=== PATIENT | male | born 1975 | race Caucasian/White ===

== ENCOUNTER → 2021-12-31 | Emergency (ER) | payer BC ==
[~2021-12-31] VITALS: Ht 170.2 cm; Wt 84.4 kg
== END | disposition left against medical advice (07) ==
LOC: ER 21:06
DX: Z53.21 Procedure and treatment not carried out due to patient leaving prior to being seen by health care provider (principal)

== ENCOUNTER 2025-05-30 06:45 | Day surgery (SDC) | payer OTHER ==
[2025-05-27 10:25] LABS: BASO % 0.5 % (0.1-1.2); EOS # 0.07 (0.04-0.54); EOS % 0.9 % (0.7-7.0); LYMPH # 1.63 (1.18-3.74); LYMPH % 21.9 % (19.3-53.1); MEAN PLATELET VOLUME 9.10 fl (9.4-12.4); MONO # 0.72 (0.24-0.82); MONO % 9.7 % (4.7-12.5); NEUT # 4.95 (1.56-6.13); NEUT % 66.7 % (34.0-71.1); RED CELL DISTRIBUTION WIDTH 12.0 % (11.6-14.4)
[2025-05-27 10:57] VITALS: BP 124/77
[2025-05-27 11:11] LABS: ALT/SGPT 26.0 U/L (12-78); AST/SGOT 14.0 U/L (15-37); BILIRUBIN TOTAL 0.53 mg/dL (0.3-1.2); BUN CREA RATIO 27.0 (7.0-25.0); CREATININE SERUM 0.86 mg/dL (0.70-1.30); GFR 94.13; GLOBULINA 3.3 G/DL (2.4-3.5); GLUCOSE FASTING 104.0 mg/dL (65-100); OSMOLALITY SERUM 285.0 MOSM/KG (275-295)
[2025-05-27 11:18] LABS: URINE APPEARANCE Clear; URINE BILIRRUBIN Negative (NEGATIVE); URINE BLOOD Negative; URINE COLOR Yellow; URINE GLUCOSE Negative (NEGATIVE); URINE KETONE Negative (NEGATIVE); URINE LEUKOCYTE Negative; URINE NITRATE Negative; URINE PROTEIN Negative (NEGATIVE); URINE UROBILINOGEN 0.2 E.U./dl
[2025-05-27 11:23] LABS: URINE BACTERIA 40.7 uL (0.0-1933); URINE WBC 2.7 uL (0.0-23.2)
[2025-05-27 11:51] LABS: URINE CAST 0.00 uL (0.0-1.40); URINE EPITHELIAL CELLS 0.7 uL (0.0-38.8); URINE RBC 1.7 uL (0.0-20.8)
[2025-05-27 11:57] LABS: INR 1.02
[~2025-05-30] VITALS: Ht 172.7 cm; Wt 74.8 kg
[2025-05-30] MEDS ORDERED: TRAMADOL HCL50 MG PO (07:56)
[2025-05-30] MEDS ORDERED: MIRALAX17 GM PO (07:56)
[2025-05-30] MEDS ORDERED: KETO10TA2 PO (07:56)
[2025-05-30] MEDS ORDERED: TYLENOL ARTHRI650 MG PO (07:56)
[2025-05-30] MEDS ORDERED: CEFAZOLIN SODIUM 1,000 MG VIAL ONE (08:43)
[2025-05-30] MEDS ORDERED: BUPIVACAINE HCL/MPF 0.5% 30ML VIAL ONE (09:48)
[2025-05-30] MEDS ORDERED: LIDOCAINE HCL 1%/EPINEPHRINE 20ML VIAL IJ ONE (09:48)
[2025-05-30] MEDS ORDERED: SUGAMMADEX SODIUM 200 MG/2 ML VIAL IV ONE (11:54)
[2025-05-30] MEDS ORDERED: NEURONTIN300 MG PO (12:42)
[2025-05-30] MEDS ORDERED: MORPHINE SULFATE 4 MG/ML VIAL IV ONE ×2 (12:45→13:15)
[2025-05-30 16:12] VITALS: BP 130/67; O2SAT 100
== END 2025-05-30 16:20 | disposition home or self-care (01) ==
LOC: CIR.AMB 06:45
PROVIDERS: ATTEND Surgery
DX: K40.90 Unilateral inguinal hernia, without obstruction or gangrene, not specified as recurrent (principal); K42.0 Umbilical hernia with obstruction, without gangrene
CPT/HCPCS: 49650; 49592; C1781